=== PATIENT | male | born 1995 | race Caucasian/White ===

== ENCOUNTER 2018-07-15 01:19 | Emergency (ER) | payer OTHER ==
[2018-07-15 01:26] VITALS: BP 133/75; PULSE 98; TEMP 100.3; BMI 30.1
--- NOTE | 2018-07-15 01:55 | PDOC ---
History of Present Illness - General Chief Complaint: Pain, Acute Stated Complaint: SORE THROAT Time Seen by Provider: 07/15/18 01:22 - History of Present Illness Initial Comments: This otherwise healthy 23-year-old man with a history of a few episodes of strep pharyngitis in the last several years presents with 2 day history of progressive sore throat and low-grade fever. Of note, the patient has been exposed to his sister and nephews who recently (07/09) diagnosed with strep pharyngitis. Patient denies trismus/drooling. He has been taking over-the- counter analgesics/NSAIDs without significant relief of his symptoms. No cough/ gastrointestinal symptoms/rash noted Past History - Past Medical History Allergies/Adverse Reactions: Allergies Allergy/AdvReac Type Severity Reaction Status Date / Time No Known Allergies Allergy Verified 07/15/18 01:20 Home Medications: Ambulatory Orders NK [No Known Home Medication] 07/15/18 COPD: No - Immunization History Td Vaccination: Yes Immunization Up to Date: Yes - Suicide/Smoking/Psychosocial Hx Smoking Status: Yes Smoking History: Current every day smoker Have you smoked in the past 12 months: Yes Number of Cigarettes Smoked Daily: 30 Cigars Per Day: 9 Information on smoking cessation initiated: Yes 'Breaking Loose' booklet given: 11/15/15 Hx Alcohol Use: No Drug/Substance Use Hx: No Substance Use Type: Alcohol Review of Systems - Review of Systems Able to Perform ROS?: Yes Comments:: 12 point review of systems is negative except for what is noted in the history of present illness *Physical Exam - Vital Signs Last Vital Signs Temp Pulse Resp BP Pulse Ox 100.3 F H 98 H 16 133/75 98 07/15/18 01:22 07/15/18 01:22 07/15/18 01:22 07/15/18 01:22 07/15/18 01:22 - Physical Exam Comments: GENERAL: Adult male, in mild distress secondary to throat pain; no trismus or drooling HEAD: Normal with no signs of trauma. EYES: PERRLA, EOMI, sclera anicteric, conjunctiva clear. ENT: Ears normal, nares patent, oropharynx erythematous with scattered purulent patches; dry mucous membranes. NECK: Normal range of motion, supple without lymphadenopathy, JVD, or masses. LUNGS: Breath sounds equal, clear to auscultation bilaterally. No wheezes, and no crackles. HEART:Regular rate and rhythm, normal S1 and S2 without murmur, rub or gallop. ABDOMEN:.normal bowel sounds No guarding,tenderness or rebound.No masses No distention. EXTREMITIES: Normal range of motion, no edema. No clubbing or cyanosis. No erythema, or tenderness. NEUROLOGICAL: Cranial nerves II through XII grossly intact. Normal speech. No focal neurological deficits. MUSCULOSKELETAL: Back non-tender to palpation, no CVA tenderness SKIN: Warm, Dry, normal turgor, no rashes or lesions noted. Medical Decision Making - Medical Decision Making This 23-year-old man with history of strep pharyngitis as an adult presents with a few day history of sore throat and fever. Of note, he is been exposed to his sister and nephews were all diagnosed with strep pharyngitis over the last week. Exam as noted: Erythematous pharynx with purulent patches. Because of his exposure to strep pharyngitis and history as an adult of having strep pharyngitis, he will be medically treated. According to the patient, oral antibiotics "do not work" when he has strep pharyngitis and he always receives Bicillin. The patient was given 1.2 million units of Benzathine penicillin. He also states that he usually receives "steroids" for the pain associated with history of pharyngitis. Patient given Decadron 8 mg by mouth. Patient has been seen by Dr. Klein in the past and referral information for him provided for the patient. Patient should return if he has persistent severe pain, high fever or has difficulty swallowing *DC/Admit/Observation/Transfer Diagnosis at time of Disposition: Strep pharyngitis - Discharge Dispostion Disposition: HOME Condition at time of disposition: Stable - Referrals Referrals: Ike Klein MD [Staff Physician] - - Patient Instructions Printed Discharge Instructions: Strep Throat Additional Instructions: Drink plenty of fluids Ibuprofen/naproxen/acetaminophen as needed for pain Follow-up with if you have persistent pain or have difficulty swallowing - Post Discharge Activity
[2018-07-15] MEDS ORDERED: DEXAMETHASONE 4 MG TABLET (FP) ONE (02:02)
[2018-07-15] MEDS ORDERED: PENICILLIN G BENZATHINE 1,200,000 UNIT/2 ML PFS IM ONE ×2 (02:02)
[2018-07-15] MEDS ORDERED: DEXAMETHASONE 4 MG TABLET (FP) PO ONE (02:15)
== END 2018-07-15 02:15 | disposition home or self-care (01) ==
LOC: FER 01:19
DX: J02.0 Streptococcal pharyngitis (principal); F17.210 Nicotine dependence, cigarettes, uncomplicated
CPT/HCPCS: 99281-25